=== PATIENT | male | born 1995 | race Caucasian/White ===

== ENCOUNTER 2019-11-01 12:42 | Emergency (ER) | payer MEDICARE, SELFPAY ==
[2019-11-01 12:44] VITALS: BP 117/67; PULSE 68; RESP 16; TEMP 36.4; O2SAT 98; BMI 34.8
--- NOTE | 2019-11-01 13:11 | ED.VISSUMM ---
- ER Visit Summary Date of Service: 11/01/19 Chief Complaint: Hematemesis History of Present Illness: The patient is a 24 M who presents with hematemesis that has been intermittent for the past 4 months. Patient states that he has noted some coffee-ground emesis and today he noted some red blood in his emesis. Patient states that his nausea and vomiting has been intermittent but when he where he vomits he does noted some coffee ground-like material in his emesis. Patient admits to occasional hematochezia. Patient states that he does not always have hematochezia with his bowel movements. Patient denies any dysuria or hematuria. Patient denies any fevers or chills. Patient states the takes approximately 1600 mg of ibuprofen in a day. Patient states he does not take this regularly however. Physical Examination: Vital signs are stable. Patient is afebrile. Patient is in no acute distress. Oral mucosa is pink and moist. Neck is supple. Trachea is midline. There is no JVD. Heart was regular rate and rhythm. Lungs are clear and equal bilaterally. Abdomen is soft. Bowel sounds are normal. There is upper abdominal tenderness. There is no rebound or guarding noted. Cranial nerves II through XII are intact. There are no focal motor or sensory deficits noted. Test Results: CBC shows a normal hemoglobin and hematocrit. White blood cell count was normal. Platelets were normal. Comprehensive metabolic profile was normal. INR is 1.1. Emergency Department Course and Treatment: Patient has no further episodes of hematemesis here in the emergency department. With a normal hemoglobin and hematocrit, I do not feel the patient warrants admission at this time. Patient was given a prescription for Prilosec. Patient was instructed to take Tylenol instead of ibuprofen as needed for pain. Patient was instructed to follow-up with his primary care physician. He may need outpatient evaluation by aircraft structural design engineer. Patient understands and is agreeable with the plan. All questions were answered. Disposition: Discharge home Impression: 1. Upper abdominal pain 2. History of hematemesis This note was generated with [employer] dictation software. It may contain incorrect words, spelling, and punctuation that were not noted in review of the chart prior to signing ED Disposition - Plan for ED Patient: Disposition: Home or Assisted Living Diagnosis: Upper abdominal pain, unspecified, History of hematemesis Instructions: GI BLEED, Upper (Stable) Prescriptions: Omeprazole [Prilosec] 20 mg PO DAILY #30 cap Prescription Printed Referrals: NOT,DEFINED [NON-STAFF] - 5-7 Days
[2019-11-01 13:33] LABS: Absolute Lymphocyte Count 1.38 X10^3/uL (0.83-4.51); Absolute Neutrophil Count 3.9 X10^3/uL (2.0-7.7); Basophil# 0.02 X10^3/uL; Basophil% 0.3 % (0-1); Eosinophil# 0.08 X10^3/uL; Eosinophils% 1.4 % (0-5); Hematocrit 43.9 % (40-54); Hemoglobin 14.9 g/dL (13.0-16.5); Lymphocyte # 1.38 X10^3/ul (4.0); Mean Corp Hgb Conc 33.9 g/dL (32-36); Mean Corpuscular Hgb 34.4 pg (27.0-32.0); Mean Corpuscular Volume 101.4 fL (80-94); Mean Platelet Vol. 10.4 fl (6.2-12.0); Monocyte# 0.35 X10^3/uL; Monocyte% 6.1 % (0-10); NRBC Flagged by Analyzer 0 % (0-5); Neutrophil % 67.9 % (47-70); Platelet Count 199 K/mm3 (150-450); RBC Distribution Width CV 11.8 % (11.6-14.6); RBC Distribution Width SD 44.4 fl (35.1-43.9); Red Blood Count 4.33 M/mm3 (4.6-6.2); White Blood Count 5.8 K/mm3 (4.4-11.0)
[2019-11-01 13:48] LABS: ALB/GLOB Ratio 0.9 RATIO (0.9-2.4); AST(SGOT) 22 U/L (15-37); Alanine Aminotransfer ALT/SGPT 30 U/L (16-61); Albumin, Serum 3.6 g/dL (3.2-5.0); Alkaline Phosphatase 48 U/L (45-117); Anion Gap 5 (5-15); BUN 13 mg/dL (7-18); BUN/Creat Ratio 12.1 RATIO (10-20); Calcium,Total 8.6 mg/dL (8.5-10.1); Chloride 112 mmol/L (98-107); Creatinine, Serum 1.07 mg/dL (0.70-1.30); EST Glomerular Filtration Rate 90 mL/min (>60); Est Glom Filt Rate - Afr Amer 108 mL/min (>60); Glucose 90 mg/dL (74-106); Lipase 85 U/L (73-393); Potassium 4.1 mmol/L (3.5-5.1); Protein, Total 7.6 g/dL (6.4-8.2); Sodium Level 143 mmol/L (136-145)
[2019-11-01 13:54] LABS: International Normalized Ratio 1.1; Prothrombin Time (Protime)PT. 13.8 SECONDS (11.7-14.9)
[2019-11-01 13:55] LABS: Partial Thromboplast Time 27.8 Seconds (24.1-36.2)
== END 2019-11-01 14:20 | disposition home or self-care (01) ==
PROVIDERS: Emergency Provider Emergency Medicine
DX: R10.10 Upper abdominal pain, unspecified (principal); K92.0 Hematemesis; Z72.0 Tobacco use
CPT/HCPCS: 80053; 83690; 85025; 85610; 85730; 99283; A4216